=== PATIENT | male | born 1945 | race American Indian/Alaskan Native ===

== ENCOUNTER 2016-10-17 19:51 | Emergency (ER) | payer OTHER ==
[2016-10-17 22:01] LABS: Anion Gap 16 mmol/L; BUN/Creatinine Ratio 14.44; Blood Urea Nitrogen 13 mg/dL (9-20); Calcium 8.9 mg/dL (8.4-10.2); Carbon Dioxide 25 mmol/L (22-30); Chloride 109.2 mmol/L (98-107); Glucose 107 mg/dL (75-100); Potassium 3.2 mmol/L (3.6-5.0); Sodium 147 mmol/L (137-145)
--- NOTE | 2016-10-17 22:44 | Emergency Department Report ---
<DAMIRMARK WARREN Devika - Last Filed: 10/18/16 01:02> ED Medical Clearance HPI - General Chief complaint: Psych Stated complaint: BALA LINN alz off med and "behavioral problems per family" Time Seen by Provider: 10/17/16 21:01 Source: patient, family (spoke w staff and then left. never spoke w provider. pt here x 1 other time for this), EMS Mode of arrival: Ambulatory - History of Present Illness Alledged Intoxication: No Traumatic Symptoms: denies traumatic injury Associated Symptoms: denies: chest pain, shortness of breath, palpitations, diaphoresis, denies other symptoms, confusion Treatments Prior to Arrival: other (ems) Home medications: Home Medications Medication Instructions Recorded Confirmed Last Taken Aspirin 81 mg PO DAILY 10/18/16 10/18/16 Unknown AtorvaSTATin [Lipitor] 20 mg PO QHS 10/18/16 10/18/16 Unknown Citalopram [celeXA] 10 mg PO QDAY 10/18/16 10/18/16 Unknown Donepezil [Aricept] 5 mg PO QDAY 10/18/16 10/18/16 Unknown Ergocalciferol [Vitamin D2] 1 cap PO QWEEK 10/18/16 10/18/16 Unknown Quetiapine Fumarate [Seroquel] 50 mg PO QHS 10/18/16 10/18/16 Unknown traZODone [Desyrel] 50 mg PO QHS 10/18/16 10/18/16 Unknown Allergies/Adverse reactions: Allergies Allergy/AdvReac Type Severity Reaction Status Date / Time No Known Allergies Allergy Unverified 03/10/16 08:35 ED Review of Systems ROS: Stated complaint: BALA LINN Other details as noted in HPI Comment: Unobtainable due to pts medical conditions Constitutional: see HPI Eyes: as per HPI ENT: as per HPI Respiratory: see HPI Cardiovascular: as per HPI Endocrine: see HPI Gastrointestinal: as per HPI Genitourinary: as per HPI Musculoskeletal: as per HPI Skin: as per HPI Neurological: as per HPI Psychiatric: as per HPI, other (alz inability to care for self). denies: anxiety, depression, auditory hallucinations, visual hallucinations, homicidal thoughts, suicidal thoughts Hematological/Lymphatic: as per HPI ED Past Medical Hx - Past Medical History Hx Hypertension: Yes (NOT TAKING MEDICATIONS NOW) Hx CVA: No Hx Heart Attack/AMI: Yes Hx Congestive Heart Failure: No Hx Diabetes: No Hx Deep Vein Thrombosis: No Hx Pulmonary Embolism: No Hx GERD: No Hx Liver Disease: No Hx Renal Disease: Yes (renal cyst) Hx of Cancer: No Hx Sickle Cell Disease: No Hx Arthritis: No Hx Headaches / Migraines: No Hx Seizures: No Hx Kidney Stones: No Hx Psychiatric Treatment: Yes (Depression,) Hx Asthma: No Hx COPD: No Hx Tuberculosis: No Hx Dementia: Yes Hx HIV: No Additional medical history: ALZHEIMERS, CAD, RENAL CYSTS, - Surgical History Past Surgical History?: No - Social History Smoking Status: Current Every Day Smoker Substance Use Type: None - Medications Home Medications: Home Medications Medication Instructions Recorded Confirmed Last Taken Type Aspirin 81 mg PO DAILY 10/18/16 10/18/16 Unknown History AtorvaSTATin [Lipitor] 20 mg PO QHS 10/18/16 10/18/16 Unknown History Citalopram [celeXA] 10 mg PO QDAY 10/18/16 10/18/16 Unknown History Donepezil [Aricept] 5 mg PO QDAY 10/18/16 10/18/16 Unknown History Ergocalciferol [Vitamin D2] 1 cap PO QWEEK 10/18/16 10/18/16 Unknown History Quetiapine Fumarate [Seroquel] 50 mg PO QHS 10/18/16 10/18/16 Unknown History traZODone [Desyrel] 50 mg PO QHS 10/18/16 10/18/16 Unknown History ED Physical Exam - General Limitations: No Limitations General appearance: alert, in no apparent distress - Head Head exam: Present: atraumatic - Eye Eye exam: Present: normal appearance - ENT ENT exam: Present: normal exam, mucous membranes moist - Neck Neck exam: Present: normal inspection. Absent: tenderness, meningismus - Respiratory Respiratory exam: Present: normal lung sounds bilaterally. Absent: respiratory distress, wheezes, rales, rhonchi, stridor - Cardiovascular Cardiovascular Exam: Present: regular rate, normal rhythm. Absent: bradycardia , tachycardia, irregular rhythm - GI/Abdominal GI/Abdominal exam: Present: soft. Absent: distended, tenderness, guarding, rebound, rigid, normal bowel sounds, diminished bowel sounds - Rectal Rectal exam: Present: deferred - Extremities Exam Extremities exam: Present: normal inspection, full ROM. Absent: tenderness - Back Exam Back exam: Present: normal inspection, full ROM. Absent: tenderness, CVA tenderness (R), CVA tenderness (L) - Neurological Exam Neurological exam: Present: alert, abnormal gait (poor gait per ems) - Expanded Neurological Exam Expanded Patient oriented to: Present: person Cranial nerves: EOM's Intact: Normal, Gag Reflex: Normal, Tongue Deviation: Normal, Nystagmus: Normal, Facial Sensation: Normal, Facial Palsy with Forehead Movement: Normal, Facial Palsy without Forehead Movement: Normal Best Eye Response (Isabela): (4) open spontaneously Best Motor Response ([place]abela): (6) obeys commands Best Verbal Response ([place]): (4) confused conversation (normal for pt. no trauma. dementia) Isabela Total: 14 - Psychiatric Psychiatric exam: Present: other (not aggressive). Absent: normal affect, normal mood, depressed, agitated, anxious, flat affect (will not participate in interview. ), manic, homicidal ideation, suicidal ideation - Skin Skin exam: Present: warm, dry, intact, normal color. Absent: rash ED Course Vital Signs 10/17/16 10/18/16 20:01 00:29 Temperature 98.6 F 98.8 F Pulse Rate 92 H 60 Respiratory 20 18 Rate Blood Pressure 148/97 118/79 [Right] O2 Sat by Pulse 99 98 Oximetry - Reevaluation(s) Reevaluation #1: to er via ems fam sent him for behav problems alz dementia off meds no reports of trauma or change in med dose etc pt is in nad v[facility] ab[facility] intact rx per ems asa statin citalopram donepezil ergocalif quetiapine trazadone 10/18/16 00:20 labs noted cleared for mhe Reevaluation #2: 10/18/16 00:50 pt is asleep easily aroused states name states he lives w fam states his fam brought him here he is cooperative not agitated 10/18/16 01:[address] per e eval monitor ED Medical Decision Making - Lab Data Result diagrams: 10/17/16 23:29 10/17/16 23:29 - EKG Data -: EKG Interpreted by Me EKG shows normal: sinus rhythm - EKG Data Interpretation: no acute changes - Medical Decision Making alz dem fam unable to care for pt will not take meds behavioral concern- wandering ED Disposition Disposition: [id number]/[facility] PSY HOSP/PSY UNIT Is pt being admited?: No Does the pt Need Aspirin: No Condition: Stable Referrals: PRIMARY CARE, [Primary Care Provider] - 3-5 Days <DANIA LOPEZ - Last Filed: 10/18/16 06:02> ED Medical Clearance HPI - History of Present Illness Initial comments: to er via ems fam sent him for behav problems alz dementia off meds no reports of trauma or change in med dose etc pt is in nad [facility] intact rx per ems asa statin citalopram donepezil ergocalif quetiapine trazadone ED Medical Decision Making - Lab Data Result diagrams: 10/17/16 23:29 10/17/16 23:29
[2016-10-17 23:31] LABS: Urine Drugs of Abuse Note Disclamer
[2016-10-17 23:58] LABS: Basophils % (Auto) 0.5 % (0.0-1.8); Eosinophils % (Auto) 2.5 % (0.0-4.3); Hematocrit 36.2 % (35.5-45.6); Hemoglobin 12.1 gm/dl (11.8-15.2); Mean Corpuscular HGB Conc 34 % (32-34); Mean Corpuscular Hemoglobin 28 pg (28-32); Mean Corpuscular Volume 85 fl (84-94); Platelet Count 276 K/mm3 (140-440); Red Blood Count 4.27 M/mm3 (3.65-5.03); Red Cell Distribution Width 14.2 % (13.2-15.2); White Blood Count 7.6 K/mm3 (4.5-11.0)
[2016-10-17 23:59] LABS: Bilirubin,Urine NEG (Negative); Blood,Urine SM (Negative); Ketones,Urine NEG (Negative); Leukocyte Esterase,Urine NEG (Negative); Mucus,Urine 3+ /HPF; Nitrite,Urine NEG (Negative)
[2016-10-18 00:10] LABS: Alanine Aminotransferase 6 units/L (7-56); Albumin 3.9 g/dL (3.9-5); Albumin/Globulin Ratio 1.2 %; Alkaline Phosphatase 138 units/L (35-129); Anion Gap 15 mmol/L; BUN/Creatinine Ratio 15.55; Blood Urea Nitrogen 14 mg/dL (9-20); Calcium 8.8 mg/dL (8.4-10.2); Carbon Dioxide 27 mmol/L (22-30); Glucose 94 mg/dL (75-100); Sodium 145 mmol/L (137-145); Total Protein 7.2 g/dL (6.3-8.2)
[2016-10-18 00:13] LABS: Potassium 3.9 mmol/L (3.6-5.0)
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
[2016-10-19 14:03] VITALS: BP 122/72
== END 2016-10-19 18:59 | disposition home or self-care (01) ==
LOC: EEVIPCON 19:51 → ED 19:51
DX: R46.89 Other symptoms and signs involving appearance and behavior (principal); I10 Essential (primary) hypertension; I25.2 Old myocardial infarction; F32.9 Major depressive disorder, single episode, unspecified; G30.9 Alzheimer's disease, unspecified; F17.200 Nicotine dependence, unspecified, uncomplicated
CPT/HCPCS: 36415; 80048; 80053; 80307; 81001; 83735; 84484; 85025; 93005; 93010; 99284; G0480; 80320